=== PATIENT | female | born 1995 | race African-American/Black ===

== ENCOUNTER 2020-12-21 11:56 | Emergency (ER) | payer BC ==
[2020-12-21 12:02] VITALS: BP 117/64; PULSE 74; TEMP 97; BMI 36.9
[2020-12-21 13:51] LABS: INR 1.07 (0.83-1.09); PROTHROMBIN TIME (PATIENT) 13.1 SEC (9.7-13.0)
[2020-12-21 15:32] LABS: CHLORIDE 108 mmol/L (98-107); POTASSIUM 3.5 mmol/L (3.5-5.1); SODIUM 139 mmol/L (136-145)
[2020-12-21 15:36] LABS: ALBUMIN 4.1 g/dl (3.4-5.0); ANION GAP 5 MMOL/L (8-16); BLOOD UREA NITROGEN 9.1 mg/dL (7-18); CALCIUM 9.4 mg/dL (8.5-10.1); CO2 27 mmol/L (21-32)
[2020-12-21 15:37] LABS: GLUCOSE,RANDOM 86 mg/dL (74-106)
[2020-12-21 15:39] LABS: SGOT/AST 8 U/L (15-37); SGPT/ALT 17 U/L (13-61)
[2020-12-21 15:40] LABS: BILIRUBIN,TOTAL 1.2 mg/dL (0.2-1); TOT PROT 7.8 g/dl (6.4-8.2)
[2020-12-21 15:42] LABS: ALK PHOS 47 U/L (45-117)
[2020-12-21 15:45] LABS: BASO % 0.3 % (0-2.0); EOS % 0.1 % (0-4.5); HEMATOCRIT 38.1 % (32.4-45.2); HEMOGLOBIN 12.5 GM/dL (10.7-15.3); LYMPH % 12.5 % (8-40); MCH 32.1 pg (25.7-33.7); MCHC 32.8 g/dl (32.0-36.0); MEAN CELL VOLUME 97.8 fl (80-96); MEAN PLT VOLUME 9.9 fl (7.5-11.1); MONO % 3.2 % (3.8-10.2); NEUT % 83.9 % (42.8-82.8); PLATELET COUNT 296 K/MM3 (134-434); RDW 12.1 % (11.6-15.6)
== END 2020-12-21 16:57 | disposition home or self-care (01) ==
LOC: EDBD 11:56 → JER 11:56
DX: R06.00 Dyspnea, unspecified (principal)
CPT/HCPCS: 36415; 71045-TC-FY; 80053; 82550; 84484; 84703; 85025; 85379; 85610; 93005; 93010; 99285-25; C9803; U0003